=== PATIENT | male | born 1945 ===

== ENCOUNTER → 2023-08-04 12:35 | Outpatient (BNVA) | payer OTHER, SELFPAY | PROVIDERS: Referring Provider Emergency Medicine Emergency Medical Services; Visit Provider Dermatology | DX: D48.5 Neoplasm of uncertain behavior of skin (principal); L57.0 Actinic keratosis; L82.0 Inflamed seborrheic keratosis; L82.1 Other seborrheic keratosis; D22.5 Melanocytic nevi of trunk; S80.262A Insect bite (nonvenomous), left knee, initial encounter; S80.862A Insect bite (nonvenomous), left lower leg, initial encounter; L57.8 Other skin changes due to chronic exposure to nonionizing radiation; Z85.820 Personal history of malignant melanoma of skin; Z85.828 Personal history of other malignant neoplasm of skin; L81.4 Other melanin hyperpigmentation | CPT/HCPCS: 11104; 17000; 17110; 99203 ==

== ENCOUNTER → 2023-08-13 13:06 | Outpatient (BNVA) | payer OTHER, SELFPAY | PROVIDERS: Visit Provider Dermatology | DX: L44.8 Other specified papulosquamous disorders (principal); D23.9 Other benign neoplasm of skin, unspecified | CPT/HCPCS: 99212 ==

== ENCOUNTER → 2024-05-26 12:44 | Outpatient (BNVA) | payer OTHER, SELFPAY | PROVIDERS: Visit Provider Nurse Practitioner Family | DX: S00.81XA Abrasion of other part of head, initial encounter (principal); X58.XXXA Exposure to other specified factors, initial encounter; L21.8 Other seborrheic dermatitis; L44.8 Other specified papulosquamous disorders; E13.620 Other specified diabetes mellitus with diabetic dermatitis; L81.4 Other melanin hyperpigmentation; Z85.820 Personal history of malignant melanoma of skin; Z08 Encounter for follow-up examination after completed treatment for malignant neoplasm; Z85.828 Personal history of other malignant neoplasm of skin; L57.0 Actinic keratosis | CPT/HCPCS: 17000; 99214 ==